=== PATIENT | male | born 1955 | race African-American/Black ===

== ENCOUNTER 2019-05-31 17:09 | Emergency (ER) | payer OTHER ==
[~2019-05-31] VITALS: Ht 177.8 cm; Wt 92.7 kg
[2019-05-31 18:57] VITALS: BP 158/76
== END 2019-05-31 19:00 | disposition home or self-care (01) ==
LOC: ED 17:09
DX: S61.213A Laceration without foreign body of left middle finger without damage to nail, initial encounter (principal); I10 Essential (primary) hypertension; W26.8XXA Contact with other sharp object(s), not elsewhere classified, initial encounter; Y92.009 Unspecified place in unspecified non-institutional (private) residence as the place of occurrence of the external cause